=== PATIENT | female | born 1985 | race African-American/Black ===

== ENCOUNTER 2019-06-24 11:50 | Emergency (ER) | payer MEDICAID, OTHER ==
[~2019-06-24] VITALS: Ht 182.9 cm; Wt 84.0 kg
[~2019-06-24 11:50] MED LIST: NO HOME MEDS; ONDA8TAB9 PO
[2019-06-24 12:07] VITALS: BP 133/85
[2019-06-24] MEDS ORDERED: CHLO473M2 MT (12:22)
[2019-06-24] MEDS ORDERED: [UNRECOGNIZED DRUG - CODE] TOP (12:27)
== END 2019-06-24 12:37 | disposition home or self-care (01) ==
LOC: ER 11:50
DX: K14.1 Geographic tongue (principal); K14.5 Plicated tongue; F12.90 Cannabis use, unspecified, uncomplicated; F17.200 Nicotine dependence, unspecified, uncomplicated; Z91.018 Allergy to other foods
CPT/HCPCS: 99283

== ENCOUNTER 2019-08-13 15:09 | Emergency (ER) | payer OTHER ==
[~2019-08-13] VITALS: Ht 182.9 cm; Wt 83.0 kg
[~2019-08-13 15:09] MED LIST changes: +CHLO473M2 MT; +[UNRECOGNIZED DRUG - CODE] TOP
[2019-08-13 15:22] VITALS: BP 113/70
[2019-08-13] MEDS ORDERED: CIPR10DR LEFT EAR (16:17)
[2019-08-13] MEDS ORDERED: ACYC-202 PO (16:17)
[2019-08-13] MEDS ORDERED: CIP750T PO (16:17)
== END 2019-08-13 16:36 | disposition home or self-care (01) ==
LOC: ER 15:10
DX: H72.92 Unspecified perforation of tympanic membrane, left ear (principal); H60.92 Unspecified otitis externa, left ear; B00.1 Herpesviral vesicular dermatitis; K14.1 Geographic tongue; F12.90 Cannabis use, unspecified, uncomplicated; Z60.2 Problems related to living alone; Z79.2 Long term (current) use of antibiotics; Z79.899 Other long term (current) drug therapy
CPT/HCPCS: 99283

== ENCOUNTER 2019-10-03 11:25 | Emergency (ER) | payer MEDICAID, OTHER ==
[~2019-10-03] VITALS: Ht 182.9 cm; Wt 86.4 kg
[2019-10-03] MEDS ORDERED: acetaminophen 325mg tablet PO ONE (11:40)
[2019-10-03] MEDS ORDERED: acetaminophen 325mg tablet PO STA (11:53)
[2019-10-03] MEDS ORDERED: normal saline 1000ML IV soln IV ONE (11:55)
[2019-10-03 13:21] LABS: BASOPHILS % (AUTO) 0.3 % (0-1); EOSINOPHILS % (AUTO) 0.5 % (0-6); HEMATOCRIT 42.2 % (35.0-45.0); LYMPHOCYTES # (AUTO) 0.8 X10'3 (1.1-4.8); LYMPHOCYTES % (AUTO) 11.1 % (21-51); MEAN CORPUSCULAR HEMOGLOBIN 28.5 PG (27.0-31.0); MEAN CORPUSCULAR HGB CONC 33.2 g/dL (33.0-36.5); MEAN CORPUSCULAR VOLUME 85.9 FL (78-98); MEAN PLATELET VOLUME 8.3 FL (7.4-10.4); MONOCYTES # (AUTO) 0.4 X10'3 (0-0.9); MONOCYTES % (AUTO) 5.8 % (2-12); NEUTROPHILS # (AUTO) 5.8 X10'3 (1.8-7.7); NEUTROPHILS % (AUTO) 82.3 % (42-75); PLATELET COUNT 270 X10'3 (140-440); RED BLOOD COUNT 4.91 X10'6 (4.20-5.60); RED CELL DISTRIBUTION WIDTH 14.6 % (11.5-14.5)
[2019-10-03 13:37] LABS: ALANINE AMINOTRANSFERASE 25 U/L (12-78); ALBUMIN 2.8 G/DL (3.4-5.0); ALBUMIN/GLOBULIN RATIO 0.6 (1.1-1.5); ALKALINE PHOSPHATASE 65 IU/L (46-116); ANION GAP 11 (8-16); ASPARTATE AMINO TRANSFERASE 18 U/L (10-37); BILIRUBIN,TOTAL 0.5 MG/DL (0.1-1.0); BLOOD UREA NITROGEN 9 MG/DL (7-18); BUN/CREATININE RATIO 7.3 (6.6-38.0); CALCIUM 8.8 MG/DL (8.5-10.1); CHLORIDE 99 MMOL/L (99-107); CREATININE 1.23 MG/DL (0.40-0.90); GLUCOSE 111 MG/DL (70-104); SODIUM 134 MMOL/L (135-145); TOTAL CARBON DIOXIDE 24.1 MMOL/L (24-32); TOTAL PROTEIN 7.5 G/DL (6.4-8.2); eGFR 61 ML/MIN
[2019-10-03 13:41] LABS: POTASSIUM 2.8 MMOL/L (3.5-5.1)
[2019-10-03] MEDS ORDERED: CefTRIAXone 2gm/D5W 50ml 50 ML IV ONE (13:50)
[2019-10-03] MEDS ORDERED: azithromycin/NS 500mg/250ml 250 ML IV ONE (13:50)
[2019-10-03] MEDS ORDERED: CEPH250T PO (14:07)
[2019-10-03] MEDS ORDERED: DOXY100C77 PO (14:07)
[2019-10-03] MEDS ORDERED: ALBU6.7H9 INH (14:07)
[2019-10-03] MEDS ORDERED: potassium Cl 20 mEq SR tablet PO STA (14:41)
[2019-10-03 15:15] LABS: CLARITY,URINE SLIGHTLY CLOUDY (Clear); COLOR,URINE YELLOW (Yellow); GLUCOSE, URINE NEGATIVE (Neg); KETONES,URINE TRACE mg/dl (Neg); LEUKOCYTE ESTERASE ,URINE NEGATIVE (Neg); NITRITES, URINE NEGATIVE (Neg); OCCULT BLOOD,URINE MODERATE (Neg); PROTEIN,URINE TRACE mg/dl (Neg)
[2019-10-03 15:17] LABS: URINE HCG NEGATIVE (NEG)
[2019-10-03] MEDS ORDERED: potassium Cl 20 mEq SR tablet ONE (15:26)
[2019-10-03 15:27] LABS: UA COLLECTION TYPE CLN CATCH MIDSTREAM
[2019-10-03 15:34] LABS: MUCUS STRANDS NONE SEEN /LPF (Neg); SQUAMOUS EPITHELIAL CELL,UR MODERATE /LPF (FEW); TRANSITIONAL EPI CELLS,URINE FEW /HPF
[2019-10-03 15:35] LABS: BACTERIA,URINE 1+ /HPF (Neg); WBC,URINE 0-4 /HPF (0-4)
[2019-10-03 17:04] VITALS: BP 112/80
== END 2019-10-03 17:00 | disposition home or self-care (01) ==
LOC: ER 11:25
DX: J18.9 Pneumonia, unspecified organism (principal); Z03.818 Encounter for observation for suspected exposure to other biological agents ruled out; E87.6 Hypokalemia; R50.9 Fever, unspecified; R05 Cough; R06.02 Shortness of breath; F12.90 Cannabis use, unspecified, uncomplicated; Z60.2 Problems related to living alone; Z79.2 Long term (current) use of antibiotics; Z79.899 Other long term (current) drug therapy
CPT/HCPCS: 36415; 71045; 80053; 81001; 81025; 83605; 84145; 85025; 85610; 87040; 93005; 96365; 96367; 99285; J0456; J0696; J7030; U0003